=== PATIENT | female | born 1990 | race African-American/Black ===

== ENCOUNTER 2016-04-04 07:50 | Emergency (ER) | payer MEDICAID, OTHER ==
[~2016-04-04] VITALS: Ht 157.5 cm; Wt 65.8 kg
[~2016-04-04 07:50] MED LIST: ACET-461; AGM875T PO; BACL10TA PO; CEPH500C PO; CETI10CA PO; CPR500T PO; HYDR-3583 PO; HYDR1TAB PO; KETO-22 PO; MECL-106 PO; MICO45CR71 VG; OMG1KC PO; ONDA-42 SL; ONDN4T PO; PNT40TEC PO; PREN1TAB39 PO; PRM25T PO; SULF1TAB38 PO; TRM50T PO
[2016-04-04 08:14] LABS: KETONES,URINE 4+ (NEGATIVE); LEUKOCYTE ESTERASE ,URINE 1+ (NEGATIVE); NITRITE,URINE NEGATIVE (NEGATIVE); PH,URINE 5 (5-9); PROTEIN,URINE 2+ (NEGATIVE); UROBILINOGEN,URINE 1 MG/DL (NORMAL)
[2016-04-04 08:21] LABS: BASOPHILS % (AUTO) 0 % (0-10); EOSINOPHILS # (AUTO) 0.2 10^3/uL (0.0-0.3); EOSINOPHILS % (AUTO) 1 % (0-10); LYMPHOCYTES # (AUTO) 2.5 X 10^3 (1.0-4.0); LYMPHOCYTES % (AUTO) 19 % (12-44); MEAN CORPUSCULAR HEMOGLOBIN 30 PG (25-34); MEAN CORPUSCULAR HGB CONC 34 G/DL (32-36); MEAN CORPUSCULAR VOLUME 88 FL (80-99); MEAN PLATELET VOLUME 9.7 FL (7.4-10.4); MONOCYTES # (AUTO) 0.9 X 10^3 (0.0-1.0); MONOCYTES % (AUTO) 6 % (0-12); NEUTROPHILS # (AUTO) 9.7 X 10^3 (1.8-7.8); NEUTROPHILS % (AUTO) 73 % (42-75); PLATELET COUNT 322 10^3/uL (130-400); RED CELL DISTRIBUTION WIDTH 13.5 % (10.0-14.5); WHITE BLOOD COUNT 13.2 10^3/uL (4.3-11.0)
[2016-04-04 08:23] LABS: BILIRUBIN,URINE 1+ (NEGATIVE)
[2016-04-04 08:24] LABS: SQUAMOUS EPITHELIAL CELL,UR 25-50 /HPF; WBC,URINE 0-2 /HPF
[2016-04-04] MEDS ORDERED: LACTATED RINGERS 1,000 ML IV ONE (08:42)
[2016-04-04 08:44] LABS: ALANINE AMINOTRANSFERASE 11 U/L (0-55); ALBUMIN 4.4 G/DL (3.2-4.5); AMYLASE 103 U/L (25-125); ANION GAP 12 MMOL/L (5-14); ASPARTATE AMINO TRANSFERASE 15 U/L (5-34); BILIRUBIN,TOTAL 0.6 MG/DL (0.1-1.0); BLOOD UREA NITROGEN 13 MG/DL (7-18); BUN/CREATININE RATIO 14; CALCIUM 9.2 MG/DL (8.5-10.1); CARBON DIOXIDE 23 MMOL/L (21-32); CHLORIDE 105 MMOL/L (98-107); CREATININE SERUM 0.93 MG/DL (0.60-1.30); GFR ESTIMATED > 60; GLUCOSE 106 MG/DL (70-105); LIPASE 40 U/L (8-78); POTASSIUM 3.6 MMOL/L (3.6-5.0); SODIUM 140 MMOL/L (135-145)
[2016-04-04] MEDS ORDERED: ONDANSETRON 4 MG/2 ML (SDV) Z0FRAN IVP ONE (08:45)
[2016-04-04] MEDS ORDERED: CATHETER FLUSH 10 ML SYR IV PRN (09:00)
[2016-04-04] MEDS ORDERED: NS 100 ML (IVPB) BAG IV ONE (09:00)
[2016-04-04] MEDS ORDERED: IOHEXOL 350 MG/ML 100 ML (OMNIPAQUE 350) VIAL IV ONE (09:00)
--- NOTE | 2016-04-04 10:06 | Diagnostic Imaging Report ---
PROCEDURE: CT abdomen and pelvis with contrast. TECHNIQUE: Multiple contiguous axial images were obtained through the abdomen and pelvis after administration of intravenous contrast. INDICATION: Upper abdominal pain, vomiting. COMPARISON: None. FINDINGS: Lung bases are clear. Wall thickening of the stomach antrum is nonspecific. There is no perigastric or duodenal inflammation or fluid collections. The liver, gallbladder, pancreas, spleen, adrenals, kidneys, collecting systems, and appendix are negative. There is an IUD free within the anterior pelvis, not within the uterus. No free intraperitoneal air/fluid, lymphadenopathy, or evidence of bowel obstruction. IMPRESSION: 1. Gastric antrum wall thickening is nonspecific but can be seen in peptic ulcer disease. There is no evidence of perforation at this time. 2. Intrauterine device free within the anterior pelvis, not within the endometrial canal or uterus. There are no associated inflammatory changes or fluid collections about the IUD. Findings discussed with Dr. Argelia Car at 9:57 AM on 04/04/2016. Dictated by: Dictated on workstation # [id number]
[2016-04-04] MEDS ORDERED: SUCR1ORA5 PO (10:37)
[2016-04-04] MEDS ORDERED: PANT40TA2 PO (10:37)
[2016-04-04] MEDS ORDERED: NITR-65 PO (10:37)
[2016-04-04] MEDS ORDERED: ONDA4TAB8 PO (10:37)
--- NOTE | 2016-04-04 10:38 | ED Abdominal Pain ---
General Chief Complaint: Abdominal/GI Problems Stated Complaint: ABD PAIN Nursing Triage Note: AMBULATED TO ROOM 08 WITH COMPLAINTS OF EPIGASTRIC PAIN SINCE SUNDAY. Sepsis Screen: Possible Sepsis Risk Source of Information: Patient History of Present Illness Time Seen By Provider: 08:05 Initial Comments C/O UPPER ABDOMINAL /EPIGASTRIC PAIN SINCE SUNDAY NIGHT C/O NAUSEA AND VOMITED X 1 THIS AM NO DIARRHEA C/O DECREASED APPETITE NO URINARY SYMPTOMS NO KNOWN SICK CONTACTS OR SUSPICIOUS FOODS LMP 03/30/16. NORMAL. NO CONTROL PCP: WAS DR. RAMIREZ, WILL BE GOING TO [facility] Allergies and Home Medications Allergies Coded Allergies: Azithromycin (Unverified Allergy, 04/19/10) Uncoded Allergies: Z PACK (Allergy, HIVES, 08/05/09) Home Medications Nitrofurantoin Monohyd/M-Cryst 100 Mg Capsule #20 100 MG PO BID Prescribed by: MARCOS CHILDS on 04/04/16 1037 Ondansetron 4 Mg Tab.rapdis #10 4 MG PO Q4H Prescribed by: MARCOS CHILDS on 04/04/16 1037 Pantoprazole Sodium 40 Mg Tablet.dr #15 40 MG PO DAILY Prescribed by: MARCOS CHILDS on 04/04/16 1037 Sucralfate 1 Gm/10 Ml Oral.susp #400 1 GM PO QID AC AND HS Prescribed by: MARCOS CHILDS on 04/04/16 1037 Review of Systems Constitutional: no symptoms reported EENTM: No Symptoms Reported Respiratory: No Symptoms Reported Cardiovascular: No Symptoms Reported Gastrointestinal: See HPI Abdominal PainDenies Diarrhea, Nausea Poor AppetiteDenies Poor Fluid Intake, Vomiting Genitourinary: No Symptoms Reported Musculoskeletal: no symptoms reported Skin: no symptoms reported Psychiatric/Neurological: No Symptoms Reported Endocrine: No Symptoms Reported Hematologic/Lymphatic: No Symptoms Reported Past Cvttcaa-Xpwztq-Xwkzjv Hx Patient Social History Alcohol Use: Denies Use Recreational Drug Use: No Smoking Status: Never a Smoker Recent Foreign Travel: No Contact w/Someone Who Travel: No Recent Infectious Disease Expo: No Recent Hopitalizations: No Immunizations Up To Date Tetanus Booster (TDap): More than 5yrs Surgeries HX Surgeries: No Respiratory Hx Respiratory Disorders: No Cardiovascular Hx Cardiac Disorders: No Neurological Hx Neurological Disorders: No Reproductive System : No Hx Reproductive Disorders: No Sexually Transmitted Disease: No HIV/AIDS: No Female Reproductive Disorders: Denies Genitourinary Hx Genitourinary Disorders: No Gastrointestinal Hx Gastrointestinal Disorders: No Musculoskeletal Hx Musculoskeletal Disorders: No Endocrine Hx Endocrine Disorders: No HEENT HX ENT Disorders: No Cancer Hx Cancer: No Psychosocial Hx Psychiatric Problems: No Integumentary HX Skin/Integumentary Disorder: Yes Skin/Integumentary Disorders: Eczema Blood Transfusions Hx Blood Disorders: No Family Medical History Significant Family History: No Pertinent Family Hx Physical Exam Vital Signs VS - Last 72 Hours, by Label 04/04/16 04/04/16 08:04 10:47 Pulse 107 87 Resp 16 16 B/P 134/93 Pulse Ox 98 98 Capillary Refill : Less Than 3 Seconds General Appearance: WD/WN no apparent distress HEENT: PERRL/EOMI Neck: non-tender full range of motion supple normal inspection Respiratory: normal breath sounds no respiratory distress no accessory muscle use Cardiovascular: regular rate, rhythm no edema no JVD no murmur Gastrointestinal: normal bowel sounds soft no organomegaly no pulsatile massNo distended, No guarding, No rebound, tenderness (MODERATE EPIGASTRIC TENDERNESS) Extremities: normal range of motion non-tender normal inspection no pedal edema no calf tenderness normal capillary refill Back: no CVA tenderness 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 no motor/sensory deficits alert normal mood/affect oriented x 3 Skin: normal color warm/dry Progress/Results/Core Measures Results/Orders Lab Results Laboratory Tests Test 04/04/16 08:00 04/04/16 08:12 Range/Units Urine Bacteria FEW H /HPF Urine Bilirubin 1+ H NEGATIVE Urine Casts NONE /LPF Urine Clarity SLIGHTLY CLOUDY Urine Color YELLOW Urine Crystals NONE /LPF Urine Culture Indicated NO Urine Glucose (UA) NEGATIVE NEGATIVE Urine Ketones 4+ H NEGATIVE Urine Leukocyte Esterase 1+ H NEGATIVE Urine Mucus MODERATE H /LPF Urine Nitrite NEGATIVE NEGATIVE Urine Protein 2+ H NEGATIVE Urine RBC NONE /HPF Urine RBC (Auto) 5+ H NEGATIVE Urine Specific [place] 1.030 H 1.016-1.022 Urine Squamous Epithelial Cells 25-50 H /HPF Urine Urobilinogen 1 NORMAL MG/DL Urine WBC 0-2 /HPF Urine pH 5 5-9 Alanine Aminotransferase (ALT/SGPT) 11 0-55 U/L Albumin 4.4 3.2-4.5 G/DL Alkaline Phosphatase 75 40-136 U/L Amylase Level 103 25-125 U/L Anion Gap 12 5-14 MMOL/L Aspartate Amino Transf (AST/SGOT) 15 5-34 U/L BUN/Creatinine Ratio 14 Basophils # (Auto) 0.0 0.0-0.1 10^3/uL Basophils (%) (Auto) 0 0-10 % Blood Urea Nitrogen 13 7-18 MG/DL Calcium Level 9.2 8.5-10.1 MG/DL Carbon Dioxide Level 23 21-32 MMOL/L Chloride Level 105 98-107 MMOL/L Creatinine 0.93 0.60-1.30 MG/DL Eosinophils # (Auto) 0.2 0.0-0.3 10^3/uL Eosinophils (%) (Auto) 1 0-10 % Estimat Glomerular Filtration Rate > 60 Glucose Level 106 H 70-105 MG/DL Hematocrit 41 35-52 % Hemoglobin 13.8 11.5-16.0 G/DL Lipase 40 8-78 U/L Lymphocytes # (Auto) 2.5 1.0-4.0 X 10^3 Lymphocytes (%) (Auto) 19 12-44 % Mean Corpuscular Hemoglobin 30 25-34 PG Mean Corpuscular Hemoglobin Concent 34 32-36 G/DL Mean Corpuscular Volume 88 80-99 FL Mean Platelet Volume 9.7 7.4-10.4 FL Monocytes # (Auto) 0.9 0.0-1.0 X 10^3 Monocytes (%) (Auto) 6 0-12 % Neutrophils # (Auto) 9.7 H 1.8-7.8 X 10^3 Neutrophils (%) (Auto) 73 42-75 % Platelet Count 322 130-400 10^3/uL Potassium Level 3.6 3.6-5.0 MMOL/L Red Blood Count 4.60 4.35-5.85 10^6/uL Red Cell Distribution Width 13.5 10.0-14.5 % Sodium Level 140 135-145 MMOL/L Total Bilirubin 0.6 0.1-1.0 MG/DL Total Protein 8.0 6.4-8.2 G/DL White Blood Count 13.2 H 4.3-11.0 10^3/uL My Orders Orders-MARCOS CHILDS DO Saline Lock/Iv-Start (04/04/16 08:06) Urine Bedside (04/04/16 08:06) Amylase (2/21/17 08:06) Cbc With Automated Diff (04/04/16 08:06) Comprehensive Metabolic Panel (04/04/16 08:06) Lipase (04/04/16 08:06) Ua Culture If Indicated (04/04/16 08:06) Ct Abdomen/Pelvis W (04/04/16 08:41) Ondansetron Injection (Zofran Injectio (04/04/16 08:45) Saline Lock/Iv-Start (04/04/16 08:42) Lactated Ringers (Lr 1000 Ml Iv Solution (04/04/16 08:42) Urine Culture (04/04/16 08:49) Iohexol Injection (Omnipaque 350 Mg/Ml 1 (04/04/16 09:00) Sodium Chloride Flush (Catheter Flush Sy (04/04/16 09:00) Ns (Ivpb) (Sodium Chloride 0.9% Ivpb Bag (04/04/16 09:00) Medications Given in ED Vital Signs/I&O Vital Sign - Last 12Hours 04/04/16 04/04/16 08:04 10:47 Pulse 107 87 Resp 16 16 B/P 134/93 Pulse Ox 98 98 Blood Pressure Mean: 107 Point of Care Testing Urine -Bedside: Negative Progress Note : Progress Note SYMPTOMS IMPROVED AT DISMISSAL Diagnostic Imaging Comments CT ABDOMEN/PELVIS--GASTRIC ANTERIOR WALL WITH THICKENING--SUSPICIOUS FOR ULCER, IUD FLOATING FREE IN PELVIS--PER RADIOLOGIST VIA PHONE AT [phone] Reviewed: Reviewed by Me, Discussed w/Radiologist Departure Impression Impression: Primary Impression: Gastritis Additional Impressions: UTI (urinary tract infection) POSSIBLE GASTRIC ULCER Disposition: 01 HOME, SELF-CARE Condition: Improved Departure-Patient Inst. Referrals: NO,LOCAL PHYSICIAN (PCP/Family) Primary Care Physician Patient Instructions: Gastritis (DC), Urinary Tract Infection, Adult (DC) Add. Discharge Instructions: CLEAR LIQUIDS--WATER, BROTH, JELLO, GATORADE NO COFFEE, POP OR TEA NO ALCOHOL BRATS DIET--BANANAS, RICE, APPLESAUCE, TOAST, SALTINES FOLLOW UP WITH [facility] THIS WEEK FOR FURTHER CARE All discharge instructions reviewed with patient and/or family. Voiced understanding. Scripts Sucralfate (Carafate)1 Gm/10 Ml Oral.susp1 Gm PO QID AC AND HS #400 ML Prov:LAM CHILDSA Farrukh JORDAN 04/04/16 Pantoprazole Sodium (Protonix)40 Mg Tablet.dr40 Mg PO DAILY #15 TAB Prov:NAZMARCOS Farrukh JORDAN 04/04/16 Ondansetron (Zofran Odt)4 Mg Tab.rapdis4 Mg PO Q4H Nausea/Vomiting #10 TAB Prov:MARCOS CHILDS DO 04/04/16 Nitrofurantoin Monohyd/M-Cryst (Macrobid 100 mg Capsule)100 Mg Inerrll777 Mg PO BID #20 CAP Prov:MARCOS CHILDS DO 04/04/16 Work/School Note: Work Release Form Date Seen in the Emergency Department: Apr 04, 2016 Return to Work: Apr 05, 2016 MARCOS CHILDS DO Apr 04, 2016 10:38
[2016-04-04 10:47] VITALS: BP 117/84
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
== END 2016-04-04 10:47 | disposition home or self-care (01) ==
LOC: EDUNIT# 07:50 → ER 07:53
DX: K29.70 Gastritis, unspecified, without bleeding (principal); N39.0 Urinary tract infection, site not specified; T85.628A Displacement of other specified internal prosthetic devices, implants and grafts, initial encounter; Z97.5 Presence of (intrauterine) contraceptive device
CPT/HCPCS: 36415; 74177; 80053; 81000; 82150; 83690; 84703; 85025; 87088; 96374